=== PATIENT | female | born 1965 | race Two or more races ===

== ENCOUNTER 2018-03-06 09:08 | Outpatient (CLI) | payer OTHER | END 2018-03-06 09:21 | disposition home or self-care (01) | LOC: MAMO-SONO 09:08 | DX: Z12.31 Encounter for screening mammogram for malignant neoplasm of breast (principal); N63.21 Unspecified lump in the left breast, upper outer quadrant ==

== ENCOUNTER 2018-09-04 09:10 | Outpatient (CLI) | payer OTHER | END 2018-09-04 17:00 | disposition home or self-care (01) | LOC: SONOGRAMA 09:10 | DX: M79.671 Pain in right foot (principal); M99.01 Segmental and somatic dysfunction of cervical region; M67.471 Ganglion, right ankle and foot ==

== ENCOUNTER 2025-01-08 12:11 | Outpatient (CLI) | payer OTHER | END 2025-01-08 12:19 | disposition home or self-care (01) | LOC: RAD 12:11 | PROVIDERS: ATTEND Physical Medicine & Rehabilitation | DX: M54.50 Low back pain, unspecified (principal); M53.3 Sacrococcygeal disorders, not elsewhere classified ==